=== PATIENT | female | born 1965 | race African-American/Black ===

== ENCOUNTER 2024-10-22 18:29 | Emergency (ER) | payer MEDICAID, OTHER ==
[~2024-10-22] VITALS: Ht 165.1 cm; Wt 45.0 kg
[~2024-10-22 18:29] MED LIST: LEVO-65 MT
[2024-10-22 18:39] VITALS: BP 172/115; PULSE 100; RESP 16; TEMP 37.1; O2SAT 98
== END 2024-10-23 01:51 | disposition left against medical advice (07) ==
LOC: ER 18:29
DX: R10.30 Lower abdominal pain, unspecified (principal); R11.2 Nausea with vomiting, unspecified; Z53.21 Procedure and treatment not carried out due to patient leaving prior to being seen by health care provider